=== PATIENT | female | born 1980 | race Two or more races ===

== ENCOUNTER 2019-10-14 20:54 | Emergency (ER) | payer SELFPAY ==
[~2019-10-14] VITALS: Ht 175.3 cm; Wt 54.4 kg
--- NOTE | 2019-10-14 20:54 | NUR ---
ED Nurse Note: PT WALKED IN TO ED FOR C/O PRODUCTIV COUGH WITH SOB SINCE YESTERDAY. TEMP AT TRIAGE IS 98.3. PT DENIES ANY RECENT TRAVELS
[2019-10-14 20:58] VITALS: BP 117/69
--- NOTE | 2019-10-14 21:00 | NUR ---
ED Nurse Note: PT SP02 IS 95% IN RA. PT HAS ACRYLIC ARTIFICIAL NAIL TO ALL FINGER NAIL.
--- NOTE | 2019-10-14 21:39 | Emergency Room Report ---
History of Present Illness General Chief Complaint: Upper Respiratory Illness Source: Patient Present Illness HPI Patient presents with a complaint dyspnea with exertion. She is felt ill for 4 weeks. She has had contact with people from [place] at that time. She denies sore throat. She does have some phlegm that she is been coughing but then swallowing. She is used Ventolin inhaler recently it has helped her. She denies any history of asthma. She does not smoke. She is felt feverish without documented temperature. She feels chest pressure. She denies any pain with this. She denies edema or calf pain. No history of blood clots. No palpitations, nausea, vomiting, diarrhea, dysuria, abdominal pain, joint pain , rashes, depression, anxiety, visual changes, dizziness, headache. Has had anaphylaxis in past and has epi pen at home. 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, runs [employer] Last Menstrual Period: NA Reviewed Nursing Documentation: PMH: Agreed; PSxH: Agreed Nursing Documentation-PMH Past Medical History: No Stated History Hx Cardiac Problems: No Hx Hypertension: No Hx Pacemaker: No Hx Asthma: No Hx COPD: No Hx Diabetes: No Hx Cancer: No Hx Gastrointestinal Problems: No Hx Dialysis: No History Of Psychiatric Problem: No Hx Neurological Problems: No Hx Cerebrovascular Accident: No Hx Seizures: No Review of Systems All Other Systems: negative except mentioned in HPI Physical Exam Vital Signs Date Time Temp Pulse Resp B/P (MAP) Pulse Ox O2 Delivery O2 Flow Rate FiO2 10/14/19 20:47 98.2 84 18 117/69 (85) 95 Room Air Sp02 EP Interpretation: reviewed, normal - In non-smoker this is interpreted as low and needing repeat as it is most likely an accurate General Appearance: well appearing, no apparent distress, GCS 15 Head: normocephalic Eyes: bilateral eye normal inspection, bilateral eye PERRL ENT: normal pharynx, moist mucus membranes Neck: full range of motion, supple Respiratory: lungs clear, normal breath sounds Cardiovascular #1: regular rate, rhythm, no edema Cardiovascular #2: 2+ radial (R) Gastrointestinal: normal inspection Genitourinary: no CVA tenderness Musculoskeletal: gait/station normal, no calf tenderness Neurologic: alert, oriented x3, grossly normal Psychiatric: mood/affect normal Skin: normal color, no rash - Fully dressed, warm/dry Medical Decision Making Diagnostic Impression: Primary Impression: Upper respiratory infection Qualified Codes: J06.9 - Acute upper respiratory infection, unspecified Additional Impressions: Dyspnea Qualified Codes: R06.00 - Dyspnea, unspecified Bronchospasm ER Course Patient presents with dyspnea and mildly productive cough with subjective possible fever. Differential includes COVID-19, bronchitis, pneumonia, other viral upper respiratory infection. Chest x-ray is indicated. Patient's lungs are clear at this time. Clinically there is no evidence of pulmonary embolus at this time, she is not tachycardic and has no calf pain or edema. Suspicion for allergic reaction or anaphylaxis is extremely low. Apparently there is a problem obtaining a accurate pulse oximetry because of paint on her's acrylic nails. Chest x-ray normal. Repeat pulse oximetry 100%. Based on the patients presenting signs, symptoms and physical exam findings, the patient has been screened and ay have COVID-19. As the patient recently used albuterol it is possible that the bronchospasm that she has been experiencing is improved at the moment. Discussed possible etiology of dyspnea with patient. No clinical emergency present at this time. Discussed home isolation with patient as she has 2 children. Patient stable for outpatient observation and treatment. Chest X-Ray Diagnostic Results Chest X-Ray Diagnostic Results : Chest X-Ray Ordered: Yes # of Views/Limited/Complete: 1 View Indication: Shortness of Breath EP Interpretation: Yes Interpretation: no consolidation, no effusion, no pneumothorax Impression: No acute disease Electronically Signed by: Electronically signed by Baldomero Mcallister MD Last Vital Signs Date Time Temp Pulse Resp B/P (MAP) Pulse Ox O2 Delivery O2 Flow Rate FiO2 10/14/19 22:35 98.0 81 16 122/70 100 Room Air Status: improved Disposition: HOME, SELF-CARE Condition: Improved Scripts Dextromethorphan Hb/Doxylamine (ROBITUSSIN NIGHTTIME COUGH DM) 237 Ml Liquid 5 ML PO Q6HR PRN for For Cough, #100 ML Prov: Baldomero Mcallister MD 10/14/19 Beclomethasone Dipropionate 40MCG Oral Inh (QVAR 40*) 7.3 Gm Aer.w.adap 2 PUFFS INH TWICE A DAY PRN for dyspnea, #1 GM 0 Refills Prov: Baldomero Mcallister MD 10/14/19 Referrals: NOT CHOSEN IPA/,REFERRING (PCP) Baldomero Mcallister MD Oct 14, 2019 21:39
--- NOTE | 2019-10-14 21:52 | NUR ---
ED Nurse Note: CXR BEING TAKEN AT THIS TIME
--- NOTE | 2019-10-14 22:13 | Diagnostic Imaging Report ---
Indication: Dyspnea Comparison: None A single view chest radiograph was obtained. Findings: Cardiomediastinal appearance is within normal limits for age. The lungs are clear. Pulmonary vascularity is appropriate. The diaphragmatic contour is smooth and costophrenic angles are sharp. No pleural effusions are identified. The bones are unremarkable. Impression: No acute findings
[2019-10-14] MEDS ORDERED: QVAR7.3 GM INH (22:25)
[2019-10-14] MEDS ORDERED: ROBITUSSIN NIG237 ML PO (22:25)
--- NOTE | 2019-10-14 22:26 | NUR ---
ED Nurse Note: SP02 100% RA TO LEFT EAR LOBE WITH GOOD WAVEFORM.
[2019-10-14 22:35] VITALS: BP 122/70
--- NOTE | 2019-10-14 22:35 | NUR ---
ER DISCHARGE NOTE: Patient is cleared to be discharged per ERMD, pt is aox4, on room air, with stable vital signs. pt was given dc and prescription instructions, pt was able to verbalize understanding, pt id band removed without complications. pt is able to ambulate with steady gait. pt took all belongings.
== END 2019-10-14 22:35 | disposition home or self-care (01) ==
LOC: EDBD 20:54 → EMR 21:05
DX: J06.9 Acute upper respiratory infection, unspecified (principal); R06.00 Dyspnea, unspecified; J98.01 Acute bronchospasm; R06.02 Shortness of breath
CPT/HCPCS: 71045; 99283

== ENCOUNTER 2019-10-17 15:22 | Emergency (ER) | payer SELFPAY ==
[~2019-10-17] VITALS: Ht 172.7 cm; Wt 56.7 kg
[~2019-10-17 15:22] MED LIST: QVAR7.3 GM INH; ROBITUSSIN NIG237 ML PO
[2019-10-17 15:23] VITALS: BP 112/76
--- NOTE | 2019-10-17 15:25 | NUR ---
Patient walked in to ER c/o severe SOB. Stated was [place] [facility] [place] this [place] for the same reazon, was prescribed QVAR and Ventolin did not work. Per pt, today SOB got worse, can not even talk and walk. Patient presented with SOB, o2 sat 95% at RA, AAO x4, VSS at this time.
--- NOTE | 2019-10-17 15:55 | NUR ---
ED Nurse Note: Patient refused chest X ray
--- NOTE | 2019-10-17 16:19 | Emergency Room Report ---
History of Present Illness General Chief Complaint: Upper Respiratory Illness Source: Patient Present Illness HPI 38-year-old female last medical history presented for shortness of breath. She has had shortness of breath and cough for approximately 5 days. Patient seen here approximately 4 days ago at that time had a normal chest x-ray was discharged home with albuterol as needed. Patient states she has had persistent shortness of breath. She denies any fevers nausea or vomiting. Patient denies any medical history. Allergies: Coded Allergies: No Known Allergies (Unverified , 10/14/19) COVID-19 Screening Contact w/high risk pt: Yes Recent Travel to affected area: Yes Experienced COVID-19 symptoms?: Yes COVID-19 symptoms experienced: Shortness of Breath Patient History Last Menstrual Period: 10/15/2019 Now: No Reviewed Nursing Documentation: PMH: Agreed; PSxH: Agreed Nursing Documentation-PMH Past Medical History: No Stated History Hx Cardiac Problems: No Hx Hypertension: No Hx Pacemaker: No Hx Asthma: No Hx COPD: No Hx Diabetes: No Hx Cancer: No Hx Gastrointestinal Problems: No Hx Dialysis: No Hx Neurological Problems: No Hx Cerebrovascular Accident: No Hx Seizures: No Review of Systems All Other Systems: negative except mentioned in HPI Physical Exam Vital Signs Date Time Temp Pulse Resp B/P (MAP) Pulse Ox O2 Delivery O2 Flow Rate FiO2 10/17/19 15:17 98.8 94 20 112/76 (88) 95 Room Air Sp02 EP Interpretation: reviewed, normal General Appearance: well appearing, no apparent distress Head: normocephalic, atraumatic Eyes: bilateral eye PERRL, bilateral eye EOMI ENT: hearing grossly normal, moist mucus membranes Neck: full range of motion, supple Respiratory: lungs clear, normal breath sounds, no rhonchi, no respiratory distress, no retraction, no wheezing Cardiovascular #1: normal peripheral pulses, regular rate, rhythm, no murmur Gastrointestinal: non tender, soft, non-distended, no guarding Neurologic: alert, oriented x3, no focal defects Skin: normal color, warm/dry Medical Decision Making Diagnostic Impression: Primary Impression: URI (upper respiratory infection) Additional Impression: Suspected COVID-19 virus infection ER Course Patient presented for cough and shortness of breath. Patient no acute distress on exam. Nontoxic-appearing, speaking in full sentences. Patient had a normal chest x-ray approximately 4 days ago. I did order a an additional chest x-ray however patient declined. O2 saturation was 95% on room air. She is currently using albuterol as needed. Differential included URI versus coronavirus, less likely bacterial pneumonia. Patient afebrile. Patient states from her primary care physician she did receive antibiotic prescription for azithromycin, I did encourage her to complete her antibiotic course as prescribed. Patient stable for discharge with strict return precautions. Last Vital Signs Date Time Temp Pulse Resp B/P (MAP) Pulse Ox O2 Delivery O2 Flow Rate FiO2 10/17/19 15:23 94 20 Room Air 10/17/19 15:23 98.8 112/76 95 Disposition: HOME, SELF-CARE Condition: Stable Referrals: [facility] Patient Instructions: Upper Respiratory Infection, Adult Additional Instructions: We are treating you for presumed covid-19. Please stay at home at least 7 days have passed after the symptoms first. And at least 3 days after you have recovered. Recovery means that fever has been gone for 72 hours without the use of fever reducing medications and your cough and shortness of breath have improved. Please do not leave your home during this time except to seek urgent medical care. All of your close contacts should be quarantined at home at least 14 days since last contact with yourself. Please return immediately to the ER if you experience any worsening symptoms shortness of breath or other concerns Theo Pepe M.D. Oct 17, 2019 16:19
[2019-10-17 16:24] VITALS: BP 112/76
--- NOTE | 2019-10-17 16:27 | NUR ---
ED Nurse Note: Pt cleared by health care Provider for discharge. DC instructions/prescription was given and explained to pt and verbalized understanding of teachings. All medical deviecs such as ID band removed. Pt is AAO x4, ambulatory and left with all personal belongings.
== END 2019-10-17 16:55 | disposition home or self-care (01) ==
LOC: EDBD 15:22 → EMR 15:45
DX: J06.9 Acute upper respiratory infection, unspecified (principal); Z03.818 Encounter for observation for suspected exposure to other biological agents ruled out
CPT/HCPCS: 99281

== ENCOUNTER 2019-11-14 19:19 | Emergency (ER) | payer SELFPAY ==
[~2019-11-14] VITALS: Ht 170.2 cm; Wt 50.8 kg
--- NOTE | 2019-11-14 19:41 | Emergency Room Report ---
History of Present Illness General Chief Complaint: Upper Respiratory Illness Source: Patient Present Illness HPI Disclaimer: Please note that this report is being documented using [employer] technology. This can lead to erroneous entry secondary to incorrect interpretation by the dictating instrument. HPI: 38-year-old female no reported past medical history presented for chest pain and cough. Patient has been seen and followed by her primary care doctor for the last month. Also seen here approximately 1 month ago for similar symptoms. That time she was treated for suspected coronavirus. She was given a prescription of azithromycin by her primary care doctor. She does report right-sided chest pain that is worse with coughing about 8 out of 10. Denies any fevers nausea or vomiting. Cough is dry. PMH: Patient denies any medical history PSH: Reviewed Social Hx: She denies any smoking drinking or illicit drug use Allergies: Coded Allergies: No Known Allergies (Unverified , 10/14/19) COVID-19 Screening Contact w/high risk pt: No Recent Travel to affected area: No Experienced COVID-19 symptoms?: No COVID-19 symptoms experienced: Shortness of Breath, Cough Patient History Now: No Nursing Documentation-PMH Past Medical History: No Stated History Hx Cardiac Problems: No Hx Hypertension: No Hx Pacemaker: No Hx Asthma: No Hx COPD: No Hx Diabetes: No Hx Cancer: No Hx Gastrointestinal Problems: No Hx Dialysis: No Hx Neurological Problems: No Hx Cerebrovascular Accident: No Hx Seizures: No Review of Systems All Other Systems: negative except mentioned in HPI Physical Exam Vital Signs Date Time Temp Pulse Resp B/P (MAP) Pulse Ox O2 Delivery O2 Flow Rate FiO2 11/14/19 19:17 98.8 90 20 108/62 (77) 97 Room Air Sp02 EP Interpretation: reviewed, normal General Appearance: well appearing, no apparent distress Head: normocephalic, atraumatic Eyes: bilateral eye PERRL, bilateral eye EOMI ENT: hearing grossly normal, moist mucus membranes Neck: full range of motion, supple Respiratory: lungs clear, normal breath sounds, no rhonchi, no respiratory distress, no retraction, no wheezing Cardiovascular #1: normal peripheral pulses, regular rate, rhythm, no murmur Gastrointestinal: non tender, soft, non-distended, no guarding Neurologic: alert, oriented x3, no focal defects Skin: normal color, warm/dry Medical Decision Making ER Course MDM: Differential diagnosis included but not limited to bronchitis, musculoskeletal pain, muscle spasm, pleurisy or pneumonia to name a few Clinical course-I did order chest x-ray. Patient in no respiratory distress lung sounds were clear. She was not hypoxic not tachycardic. Chest x-ray did not show any acute infiltrate and was unchanged from previous exam 1 month ago. I did consider PE on the patient however she was not hypoxic not tachycardic no unilateral leg swelling not on exogenous estrogen, without history of DVT or PE, recent surgery no hemoptysis. Patient currently does have bronchodilators at home I encouraged her to use them nightly prior to bed and in the morning. Encouraged her to continue outpatient follow-up. On reevaluation: Patient in no acute distress nontoxic-appearing not hypoxic Plan-discharge patient with continued outpatient follow-up. Chest X-Ray Diagnostic Results Chest X-Ray Diagnostic Results : Chest X-Ray Ordered: Yes Indication: Shortness of Breath EP Interpretation: Yes Interpretation: no consolidation, no effusion, no pneumothorax, no acute cardiopulmonary disease Impression: No acute disease Electronically Signed by: Theo Pepe MD Last Vital Signs Date Time Temp Pulse Resp B/P (MAP) Pulse Ox O2 Delivery O2 Flow Rate FiO2 11/14/19 19:17 98.8 90 20 108/62 (77) 97 Room Air Status: unchanged Disposition: HOME, SELF-CARE Condition: Stable Scripts Ibuprofen* (MOTRIN*) 600 Mg Tablet 600 MG ORAL Q6H PRN for FOR PAIN, #20 TAB 0 Refills Prov: Theo Pepe M.D. 11/14/19 Theo Pepe M.D. November 14, 2019 19:41
[2019-11-14 19:43] VITALS: BP 108/62
--- NOTE | 2019-11-14 19:45 | NUR ---
ED Nurse Note: Patient walked in to ER c/o lung pain when she inhale and SOB for 34 days, sore throat no fever, never tested for covid ,no cough. Patient stated has visitors from [place]. Patient presenrted anxious, AAO x4, VSS at this time.
--- NOTE | 2019-11-14 20:07 | Diagnostic Imaging Report ---
EXAM: XR Chest, 1 View CLINICAL HISTORY: SOB TECHNIQUE: Frontal view of the chest. COMPARISON: 10/14/2019 chest x-ray FINDINGS: Lungs: Unremarkable. No consolidation. Pleural space: Unremarkable. No pneumothorax. Heart: Unremarkable. No cardiomegaly. Mediastinum: Unremarkable. Bones/joints: Unremarkable. IMPRESSION: Normal chest x-ray.
[2019-11-14] MEDS ORDERED: IBUPROFEN600 M1 ORAL (20:17)
[2019-11-14 20:26] VITALS: BP 108/62
== END 2019-11-14 20:26 | disposition home or self-care (01) ==
LOC: EDBD 19:19 → EMR 20:04
DX: R07.9 Chest pain, unspecified (principal); R05 Cough; R06.02 Shortness of breath
CPT/HCPCS: 71045; 99283